=== PATIENT | female | born 1995 | race Caucasian/White ===

== ENCOUNTER 2017-08-19 12:16 | Emergency (ER) | payer BC ==
--- NOTE | 2017-08-19 12:24 | EDM.PDOC ---
ED HPI GENERAL MEDICAL PROBLEM - General Chief Complaint: Abdominal Pain Stated Complaint: ABD PAIN Time Seen by Provider: 08/19/17 12:22 Source of Information: Reports: Patient History Limitations: Reports: No Limitations - History of Present Illness INITIAL COMMENTS - FREE TEXT/NARRATIVE: HISTORY AND PHYSICAL: History of present illness: Patient is a 21-year-old female who presents to the emergency room with complaints of right lower quadrant pain 2 days. She states she has slight discomfort to her right low back and intermittent dysuria. Denies any fever, chills, chest pain or shortness of breath. She denies any nausea, vomiting, diarrhea or constipation. Last menstrual period 08/13/2017, normal. Review of systems: As per history of present illness and below otherwise all systems reviewed and negative. Past medical history: As per history of present illness and as reviewed below otherwise noncontributory. Surgical history: As per history of present illness and as reviewed below otherwise noncontributory. Social history: No reported history of drug or alcohol abuse. Family history: As per history of present illness and as reviewed below otherwise noncontributory. Physical exam: General: Well developed and well-nourished 21-year-old female. Alert and oriented. Nontoxic appearing and in no acute distress. HEENT: Atraumatic, normocephalic, pupils reactive, negative for conjunctival pallor or scleral icterus, mucous membranes moist, throat clear, neck supple, nontender, trachea midline. Lungs: Clear to auscultation, breath sounds equal bilaterally, chest nontender. Heart: S1S2, regular rate and rhythm Abdomen: Soft, nondistended, right lower quadrant pain/tenderness-no rebound tenderness. Negative for masses or hepatosplenomegaly. Negative for costovertebral tenderness. Pelvis: Stable nontender. Genitourinary: Deferred. Rectal: Deferred. Extremities: Atraumatic, moves all extremities per self without difficulty or deficits, negative for cords or calf pain. Neurovascular unremarkable. Neuro: Awake, alert, oriented. Cranial nerves II through XII unremarkable. Cerebellum unremarkable. Motor and sensory unremarkable throughout. Exam nonfocal. WBC 12.38; UA shows +Nitrate, +WBC, +Bacteria; CT indicates straining and striation of the right kidney suggestive of a pyelonephritis. We'll give the patient 1 g of Rocephin IV while here. Patient will be discharged with Shavonro, Pyridium, Zofran, and Tramadol. I educated her on signs and symptoms that would prompt her to come back to the emergency room. She is comfortable with discharge and she is currently pain-free with out any nausea. Vital signs are stable. Cultures and urine culture results are pending. Diagnostics: CBC, CMP, UA, urine , CT abdomen and pelvis, urine culture Therapeutics: IV fluid, Toradol Impression: UTI Plan: 1. Please take your antibiotic as directed. Zofran has been prescribed as needed for nausea management. Tramadol as needed as we discussed. Otherwise may use Tylenol or Ibuprofen as needed. Gentle heat may provide some comfort. 2. Increase your oral fluids. Blood and Urine cultures have been done (we will call you if we need to change your antibiotic). 3. If her symptoms worsen or new symptoms develop please return to the emergency room as we discussed. Follow up with her primary care provider in the next couple days. Return to the ED as needed as discussed. Definitive disposition and diagnosis as appropriate pending reevaluation and review of above. right lower abd Pain Score (Numeric/FACES): 8 - Related Data Allergies Allergy/AdvReac Type Severity Reaction Status Date / Time No Known Allergies Allergy Verified 08/19/17 12:24 Home Meds: Home Meds Ciprofloxacin HCl [Cipro] 500 mg PO BID 10 Days #20 tablet 08/19/17 [Rx] Ondansetron [Zofran ODT] 4 mg PO Q6H PRN #12 tab.dis 08/19/17 [Rx] Phenazopyridine HCl [Pyridium] 100 mg PO TID 2 Days #6 tablet 08/19/17 [Rx] ED ROS GENERAL - Review of Systems Review Of Systems: ROS reveals no pertinent complaints other than HPI. ED EXAM, GI/ABD - Physical Exam Exam: See Below (See dictation) Course - Vital Signs Last Recorded V/S: Last Vital Signs Temp 98.4 F 08/19/17 12:24 Pulse 73 08/19/17 13:50 Resp 16 08/19/17 13:50 BP 129/61 08/19/17 13:50 Pulse Ox 98 08/19/17 13:50 - Orders/Labs/Meds Orders: Active Orders 24 hr Category Date Time Status CULTURE BLOOD [BC] Stat Lab 08/19/17 14:40 Ordered CULTURE BLOOD [BC] Stat Lab 08/19/17 14:40 Ordered CULTURE URINE [RM] Stat Lab 08/19/17 12:30 Received cefTRIAXone [Rocephin in Dextrose,Iso-Osm 1 GM/50 ML] 1 Med 08/19/17 14:38 Ordered gm Premix Bag 1 bag IV ONETIME Blood Culture x2 Reflex Set [OM.PC] Stat Oth 08/19/17 14:39 Ordered Medication Orders Ceftriaxone Sodium/Dextrose 1 (gm/ Premix) 50 mls @ 100 mls/hr IV ONETIME ONE Stop: 08/19/17 15:07 Last Admin: 08/19/17 14:48 Dose: 100 mls/hr Labs: Laboratory Tests 08/19/17 08/19/17 08/19/17 Range/Units 12:30 12:30 12:38 WBC 12.38 H (4.0-11.0) K/uL RBC 5.17 (4.30-5.90) M/uL Hgb 14.1 (12.0-16.0) g/dL Hct 41.8 (36.0-46.0) % MCV 80.9 (80.0-98.0) fL MCH 27.3 (27.0-32.0) pg MCHC 33.7 (31.0-37.0) g/dL RDW Std Deviation 50.8 (28.0-62.0) fl RDW Coeff of Faiza 17 H (11.0-15.0) % Plt Count 393 (150-400) K/uL MPV 9.80 (7.40-12.00) fL Neut % (Auto) 69.5 (48.0-80.0) % Lymph % (Auto) 21.1 (16.0-40.0) % [place] % (Auto) 9.0 (0.0-15.0) % Eos % (Auto) 0.2 (0.0-7.0) % Baso % (Auto) 0.2 (0.0-1.5) % Neut # (Auto) 8.6 H (1.4-5.7) K/uL Lymph # (Auto) 2.6 H (0.6-2.4) K/uL [place] # (Auto) 1.1 H (0.0-0.8) K/uL Eos # (Auto) 0.0 (0.0-0.7) K/uL Baso # (Auto) 0.0 (0.0-0.1) K/uL Nucleated RBC % 0.0 /100WBC Nucleated RBCs # 0 K/uL Sodium (136-145) mmol/L Potassium (3.5-5.1) mmol/L Chloride (98-107) mmol/L Carbon Dioxide (21.0-32.0) mmol/L BUN (7.0-18.0) mg/dL Creatinine (0.6-1.0) mg/dL Est Cr Clr Drug Dosing mL/min Estimated GFR (MDRD) ml/min Glucose (74-106) mg/dL Calcium (8.5-10.1) mg/dL Total Bilirubin (0.2-1.0) mg/dL AST (15-37) IU/L ALT (14-63) IU/L Alkaline Phosphatase (46-116) U/L Total Protein (6.4-8.2) g/dL Albumin (3.4-5.0) g/dL Globulin (2.0-3.5) g/dL Albumin/Globulin Ratio (1.3-2.8) Urine Color YELLOW Urine Appearance CLOUDY Urine pH 6.0 (5.0-8.0) Ur Specific [place] 1.010 (1.001-1.035) Urine Protein 30 (NEGATIVE) mg/dL Urine Glucose (UA) NEGATIVE (NEGATIVE) mg/dL Urine Ketones 15 H (NEGATIVE) mg/dL Urine Occult Blood SMALL H (NEGATIVE) Urine Nitrite POSITIVE H (NEGATIVE) Urine Bilirubin NEGATIVE (NEGATIVE) Urine Urobilinogen 0.2 (<2.0) EU/dL Ur Leukocyte Esterase LARGE (NEGATIVE) Urine RBC 3-5 (0-2/HPF) Urine WBC TO NUMEROUS TO COUNT H (0-5/HPF) Ur Epithelial Cells MODERATE (NONE-FEW) Urine Bacteria 2+ H (NEGATIVE) Urine HCG, Qual NEGATIVE (NEGATIVE) 08/19/17 Range/Units 12:38 WBC (4.0-11.0) K/uL RBC (4.30-5.90) M/uL Hgb (12.0-16.0) g/dL Hct (36.0-46.0) % MCV (80.0-98.0) fL MCH (27.0-32.0) pg MCHC (31.0-37.0) g/dL RDW Std Deviation (28.0-62.0) fl RDW Coeff of Faiza (11.0-15.0) % Plt Count (150-400) K/uL MPV (7.40-12.00) fL Neut % (Auto) (48.0-80.0) % Lymph % (Auto) (16.0-40.0) % [place] % (Auto) (0.0-15.0) % Eos % (Auto) (0.0-7.0) % Baso % (Auto) (0.0-1.5) % Neut # (Auto) (1.4-5.7) K/uL Lymph # (Auto) (0.6-2.4) K/uL [place] # (Auto) (0.0-0.8) K/uL Eos # (Auto) (0.0-0.7) K/uL Baso # (Auto) (0.0-0.1) K/uL Nucleated RBC % /100WBC Nucleated RBCs # K/uL Sodium 138 (136-145) mmol/L Potassium 3.6 (3.5-5.1) mmol/L Chloride 100 (98-107) mmol/L Carbon Dioxide 25.2 (21.0-32.0) mmol/L BUN 11 (7.0-18.0) mg/dL Creatinine 0.8 (0.6-1.0) mg/dL Est Cr Clr Drug Dosing 92.79 mL/min Estimated GFR (MDRD) > 60.0 ml/min Glucose 81 (74-106) mg/dL Calcium 9.6 (8.5-10.1) mg/dL Total Bilirubin 0.9 (0.2-1.0) mg/dL AST 17 (15-37) IU/L ALT 20 (14-63) IU/L Alkaline Phosphatase 44 L (46-116) U/L Total Protein 8.9 H (6.4-8.2) g/dL Albumin 4.5 (3.4-5.0) g/dL Globulin 4.4 H (2.0-3.5) g/dL Albumin/Globulin Ratio 1.0 L (1.3-2.8) Urine Color Urine Appearance Urine pH (5.0-8.0) Ur Specific [place] (1.001-1.035) Urine Protein (NEGATIVE) mg/dL Urine Glucose (UA) (NEGATIVE) mg/dL Urine Ketones (NEGATIVE) mg/dL Urine Occult Blood (NEGATIVE) Urine Nitrite (NEGATIVE) Urine Bilirubin (NEGATIVE) Urine Urobilinogen (<2.0) EU/dL Ur Leukocyte Esterase (NEGATIVE) Urine RBC (0-2/HPF) Urine WBC (0-5/HPF) Ur Epithelial Cells (NONE-FEW) Urine Bacteria (NEGATIVE) Urine HCG, Qual (NEGATIVE) Meds: Medications Generic Name Dose Route Start Last Admin Trade Name Freq PRN Reason Stop Dose Admin Ceftriaxone Sodium/Dextrose 1 50 mls @ 100 mls/hr 08/19/17 14:38 08/19/17 14: 48 gm/ Premix IV 08/19/17 15:07 100 mls/hr ONETIME ONE Administration Discontinued Medications Generic Name Dose Route Start Last Admin Trade Name Freq PRN Reason Stop Dose Admin Lactated Ringer's 1,000 mls @ 999 mls/hr 08/19/17 12:30 Ringers, Lactated IV ASDIRECTED TRA Lactated Ringer's 1,000 mls @ 999 mls/hr 08/19/17 12:27 08/19/17 12:43 Ringers, Lactated IV 08/19/17 13:27 999 mls/hr NOW STA Administration Ceftriaxone Sodium/Dextrose Confirm 08/19/17 14:46 Rocephin In Dextrose,Iso-Osm 1 Gm/50 Ml Administered 08/19/17 14:47 Dose 50 mls @ as directed .ROUTE .STK-MED ONE Iopamidol 100 ml 08/19/17 14:07 08/19/17 14:08 Isovue Multipack-370 (76%) IVPUSH 08/19/17 14:08 100 ml ONETIME STA Administration Ketorolac Tromethamine 30 mg 08/19/17 12:30 08/19/17 12:58 Toradol IVPUSH 08/19/17 12:31 30 mg ONETIME ONE Administration Departure - Departure Time of Disposition: 14:46 Disposition: Home, Self-Care 01 Clinical Impression: Pyelonephritis - Discharge Information Prescriptions: Ciprofloxacin HCl [Cipro] 500 mg PO BID 10 Days #20 tablet Ondansetron [Zofran ODT] 4 mg PO Q6H PRN #12 tab.dis PRN Reason: Nausea Phenazopyridine HCl [Pyridium] 100 mg PO TID 2 Days #6 tablet Instructions: Pyelonephritis, Adult, [id number] Referrals: PCP,None [Primary Care Provider] - Forms: ED Department Discharge Additional Instructions: My general discharge The following information is given to patients seen in the emergency department who are being discharged to home. This information is to outline your options for follow-up care. We provide all patients seen in our emergency department with a follow-up referral. The need for follow-up, as well as the timing and circumstances, are variable depending upon the specifics of your emergency department visit. If you don't have a primary care physician on staff, we will provide you with a referral. We always advise you to contact your personal physician following an emergency department visit to inform them of the circumstance of the visit and for follow-up with them and/or the need for any referrals to a consulting specialist. The emergency department will also refer you to a specialist when appropriate. This referral assures that you have the opportunity for follow-up care with a specialist. All of these measure are taken in an effort to provide you with optimal care, which includes your follow-up. Under all circumstances we always encourage you to contact your private physician who remains a resource for coordinating your care. When calling for follow-up care, please make the office aware that this follow-up is from your recent emergency room visit. If for any reason you are refused follow-up, please contact the [facility] Emergency Department at and asked to speak to the emergency department charge nurse. [facility] [address] [place] [id number] 1. Please take your antibiotic as directed. Zofran has been prescribed as needed for nausea management. Tramadol as needed as we discussed. 2. Increase your oral fluids. Blood and Urine cultures have been done (we will call you if we need to change your antibiotic). 3. If her symptoms worsen or new symptoms develop please return to the emergency room as we discussed. Follow up with her primary care provider in the next couple days. Return to the ED as needed as discussed. - My Orders Last 24 Hours: My Active Orders 08/19/17 12:30 CULTURE URINE [RM] Stat 08/19/17 14:38 cefTRIAXone [Rocephin in Dextrose,Iso-Osm 1 GM/50 ML] 1 gm Premix Bag 1 bag IV ONETIME 08/19/17 14:39 Blood Culture x2 Reflex Set [OM.PC] Stat 08/19/17 14:40 CULTURE BLOOD [BC] Stat CULTURE BLOOD [BC] Stat - Assessment/Plan Last 24 Hours: My Active Orders 08/19/17 12:30 CULTURE URINE [RM] Stat 08/19/17 14:38 cefTRIAXone [Rocephin in Dextrose,Iso-Osm 1 GM/50 ML] 1 gm Premix Bag 1 bag IV ONETIME 08/19/17 14:39 Blood Culture x2 Reflex Set [OM.PC] Stat 08/19/17 14:40 CULTURE BLOOD [BC] Stat CULTURE BLOOD [BC] Stat
[2017-08-19] MEDS ORDERED: Lactated Ringers 1,000 ML IV STA (12:27)
[2017-08-19] MEDS ORDERED: Ketorolac 30 MG/ML SDV IVPUSH ONE (12:30)
[2017-08-19] MEDS ORDERED: Lactated Ringers 1,000 ML IV SCH (12:30)
[2017-08-19 13:42] LABS: CHLORIDE,CL 100 mmol/L (98-107); SODIUM,NA 138 mmol/L (136-145)
[2017-08-19] MEDS ORDERED: Iopamidol 755 MG/ML 500 ML Multipack Bottle IVPUSH STA (14:07)
--- NOTE | 2017-08-19 14:35 | CT ---
CT of the abdomen and pelvis with contrast. HISTORY: Pain TECHNIQUE: Axial CT images were obtained of the abdomen and pelvis following administration of 100 mL of Isovue-370 in the right antecubital fossa without complication. Coronal and sagittal reconstructi ons obtained. FINDINGS: The lung bases are clear, no pleural effusion. The liver, spleen, and pancreas appear grossly unremarkable. Motion artifact is noted within the uppe r abdomen. Mild nodular thickening of the left adrenal gland. No bulky retroperitoneal lymphadenopath y or abdominal ascites. There is possibly a mild striated appearance within the right kidney. Small cysts noted within the le ft kidney. Both ureters appear mildly thickened with a trace periureteral stranding. No calcification s noted along the courses of the ureters or within the kidneys bilaterally. Urinary bladder is normal . The large and small bowel are normal in caliber without evidence of obstruction. No focal pericolonic inflammation or stranding. The appendix is normal. No pelvic lymphadenopathy or free pelvic fluid. T he urinary bladder is normal. Uterus and ovaries are normal. Trace physiologic free fluid. No suspicious osseous abnormalities identified. IMPRESSION: 1. Periureteral stranding and striated appearance within the right kidney suggestive of an underlying UTI and right-sided pyelonephritis.
[2017-08-19] MEDS ORDERED: cefTRIAXone 1 GM in Premix Bag 1 BAG IV ONE (14:38)
== END 2017-08-19 15:32 | disposition home or self-care (01) ==
LOC: MW.ED 12:16
DX: N12 Tubulo-interstitial nephritis, not specified as acute or chronic (principal); Z79.899 Other long term (current) drug therapy
CPT/HCPCS: 36415; 74177; 80053; 81001; 81025; 85025; 87040; 87086; 87088; 87186; 96361; 96365; 96375; 99284; J0696; J1885; J7120; Q9967

== ENCOUNTER 2018-12-18 14:47 | Emergency (ER) | payer BC ==
[2018-12-18] MEDS ORDERED: Ketorolac 60 MG/2 ML SDV IM ONE (15:41)
[2018-12-18] MEDS ORDERED: Ondansetron 4 MG Tab.DIS PO ONE (15:41)
--- NOTE | 2018-12-18 15:44 | EDM.PDOC ---
ED HPI GENERAL MEDICAL PROBLEM - General Chief Complaint: Headache Stated Complaint: HEADACHE Time Seen by Provider: 12/18/18 15:27 Source of Information: Reports: Patient History Limitations: Reports: No Limitations - History of Present Illness INITIAL COMMENTS - FREE TEXT/NARRATIVE: History of present illness: []Patient's had 3 years of migraine headaches occurring approximately once a week was treated in [place] with Imitrex that worked for a short while. She states she usually takes Excedrin Migraine and that break the headache. She took Excedrin Migraine this morning and did not break. She was told by previous doctor that if this occurs she should come to the emergency room for a pain shot. She denies any fevers, trauma or sinus congestion. Review of systems: As per history of present illness and below otherwise all systems reviewed and negative. Past medical history: As per history of present illness and as reviewed below otherwise noncontributory. Surgical history: As per history of present illness and as reviewed below otherwise noncontributory. Social history: No reported history of drug or alcohol abuse. Family history: As per history of present illness and as reviewed below otherwise noncontributory. Physical exam: General: Well developed, well nourished in NAD HEENT: Atraumatic, normocephalic, pupils reactive, negative for conjunctival pallor or scleral icterus, mucous membranes moist, throat clear, neck supple, no rigidity, nontender, trachea midline. No sinus tenderness to palpation Lungs: Clear to auscultation, breath sounds equal bilaterally, chest nontender. Heart: S1S2, regular, negative for clicks, rubs, or JVD. Abdomen: NABS, Soft, nondistended, nontender. Negative for masses or hepatosplenomegaly. Negative for costovertebral tenderness. Pelvis: Stable nontender. Genitourinary: Deferred. Rectal: Deferred. Extremities: Atraumatic, negative for cords or calf pain. Neurovascular unremarkable. Neuro: Awake, alert, oriented. Cranial nerves II through XII unremarkable. Cerebellum unremarkable. Motor and sensory unremarkable throughout. Exam nonfocal. Skin:warm and dry Diagnostics: None Therapeutics: Toradol IM, Zofran ED Course: Stable Impression: Cephalgia Prescriptions: None Plan: Take meds as directed, follow up with your primary care physician, return to ER if symptoms worsen or change. Definitive disposition and diagnosis as appropriate pending reevaluation and review of above. Headache Pain Score (Numeric/FACES): 6 - Related Data Allergies Allergy/AdvReac Type Severity Reaction Status Date / Time No Known Allergies Allergy Verified 08/19/17 12:24 Home Meds: Home Meds Ciprofloxacin HCl [Cipro] 500 mg PO BID 10 Days #20 tablet 08/19/17 [Rx] Ondansetron [Zofran ODT] 4 mg PO Q6H PRN #12 tab.dis 08/19/17 [Rx] Phenazopyridine HCl [Pyridium] 100 mg PO TID 2 Days #6 tablet 08/19/17 [Rx] Past Medical History Psychiatric History: Reports: Anxiety, Depression - Infectious Disease History Infectious Disease History: Reports: Chicken Pox - Past Surgical History HEENT Surgical History: Reports: Other (See Below) Other HEENT Surgeries/Procedures: jaw surgery Social & Family History - Family History Family Medical History: Noncontributory - Caffeine Use Caffeine Use: Reports: Coffee, Energy Drinks, Soda ED ROS GENERAL - Review of Systems Review Of Systems: See Below - Physical Exam Exam: See Below Course - Vital Signs Last Recorded V/S: Last Vital Signs Temp 96.8 F 12/18/18 15:46 Pulse 91 12/18/18 15:46 Resp 16 12/18/18 15:46 BP 124/74 12/18/18 15:46 Pulse Ox 98 12/18/18 15:46 - Orders/Labs/Meds Meds: Medications Discontinued Medications Generic Name Dose Route Start Last Admin Trade Name Freq PRN Reason Stop Dose Admin Ketorolac Tromethamine 60 mg 12/18/18 15:41 12/18/18 15:57 Toradol IM 12/18/18 15:42 60 mg ONETIME ONE Administration Ondansetron HCl 4 mg 12/18/18 15:41 12/18/18 15:57 Zofran Odt PO 12/18/18 15:42 Not Given ONETIME ONE Departure - Departure Time of Disposition: 16:04 Disposition: Home, Self-Care 01 Condition: Good Clinical Impression: Cephalgia Qualifiers: Headache type: unspecified - Discharge Information *PRESCRIPTION DRUG MONITORING PROGRAM REVIEWED*: No *COPY OF PRESCRIPTION DRUG MONITORING REPORT IN PATIENT RED: No Referrals: PCP,Unknown [Primary Care Provider] - Forms: ED Department Discharge Additional Instructions: The following information is given to patients seen in the emergency department who are being discharged to home. This information is to outline your options for follow-up care. We provide all patients seen in our emergency department with a follow-up referral. The need for follow-up, as well as the timing and circumstances, are variable depending upon the specifics of your emergency department visit. If you don't have a primary care physician on staff, we will provide you with a referral. We always advise you to contact your personal physician following an emergency department visit to inform them of the circumstance of the visit and for follow-up with them and/or the need for any referrals to a consulting specialist. The emergency department will also refer you to a specialist when appropriate. This referral assures that you have the opportunity for follow-up care with a specialist. All of these measure are taken in an effort to provide you with optimal care, which includes your follow-up. Under all circumstances we always encourage you to contact your private physician who remains a resource for coordinating your care. When calling for follow-up care, please make the office aware that this follow-up is from your recent emergency room visit. If for any reason you are refused follow-up, please contact the [facility] Emergency Department at and asked to speak to the emergency department charge nurse. [facility] [address] [place] [id number]
== END 2018-12-18 16:22 | disposition home or self-care (01) ==
LOC: MW.ED 14:47
DX: R51 Headache (principal)
CPT/HCPCS: 96372; 99283; J1885

== ENCOUNTER 2020-12-17 10:04 | Day surgery (SDC) | payer BC ==
[~2020-12-17 10:04] MED LIST: Lactated Ringers 1,000 ML IV SCH; Lidocaine 2% 5 ML SDV ONE; Midazolam 1 MG/ML 2 ML SDV ONE; Ondansetron 4 MG/2 ML SDV ONE; Sodium Chloride 0.9% 10 ML SDV IV PRN; Sodium Chloride 0.9% 10 ML Syringe FLUSH PRN; Sodium Chloride 0.9% 2.5 ML Syringe FLUSH PRN; propofoL 50 ML ONE
--- NOTE | 2020-12-17 11:01 | PCM.PREANE ---
Preanesthetic Assessment - Anesthesia/Transfusion/Family Hx Anesthesia History: Prior Anesthesia Without Reaction Transfusion History: No Prior Transfusion(s) - Review of Systems General: No Symptoms Pulmonary: No Symptoms Cardiovascular: No Symptoms Gastrointestinal: No Symptoms Neurological: No Symptoms Other: Reports: None - Physical Assessment NPO Status Date: 12/17/20 NPO Status Time: 00:00 Vital Signs: Last Vital Signs Temp 97.0 F 12/17/20 10:26 Pulse 85 12/17/20 10:26 Resp 16 12/17/20 10:26 BP 138/87 12/17/20 10:26 Pulse Ox 96 12/17/20 10:26 Height: 5 ft 4 in Weight: 234 lb ASA Class: 2 Mental Status: Alert & Oriented x3 Airway Class: Mallampati = 3 Dentition: Reports: Normal Dentition ROM/Head Extension: Full Lungs: Clear to Auscultation, Normal Respiratory Effort Cardiovascular: Regular Rate, Regular Rhythm - Lab Values: Laboratory Last Values Urine HCG, Qual NEGATIVE (NEGATIVE) 12/17/20 10:15 - Allergies Allergies/Adverse Reactions: Allergies Allergy/AdvReac Type Severity Reaction Status Date / Time adhesive tape Allergy Rash Verified 12/11/20 13:45 chocolate flavor Allergy Abdominal Verified 12/11/20 13:45 Pain [place] And Derivatives Allergy Airway Verified 12/11/20 13:45 Tightness - Blood Blood Available: No - Anesthesia Plan Pre-Op Medication Ordered: None - Acknowledgements Anesthesia Type Planned: General Anesthesia Pt an Appropriate Candidate for the Planned Anesthesia: Yes Alternatives and Risks of Anesthesia Discussed w Pt/Guardian: Yes Pt/Guardian Understands and Agrees with Anesthesia Plan: Yes PreAnesthesia Questionnaire HEENT History: Reports: Other (See Below) Other HEENT History: wears glasses Cardiovascular History: Reports: Heart Murmur Other Cardiovascular History: was told she had a heart murmur when she had her jaw repaired- had it checked then (was told it "was fine") but not since Respiratory History: Reports: None Gastrointestinal History: Reports: Hemorrhoids Genitourinary History: Reports: None [employer] History: Reports: None Musculoskeletal History: Reports: Fracture, Neck Pain, Chronic Other Musculoskeletal History: hx of fx nose, neck and jaw (kicked by a horse) Neurological History: Reports: Concussion, Head Trauma, Migraines Psychiatric History: Reports: Anxiety, Depression, Other (See Below) Other Psychiatric History: claustrophobic Endocrine/Metabolic History: Reports: Obesity/BMI 30+ Hematologic History: Reports: None Immunologic History: Reports: None Oncologic (Cancer) History: Reports: None Dermatologic History: Reports: None - Infectious Disease History Infectious Disease History: Reports: Chicken Pox - Past Surgical History Head Surgeries/Procedures: Reports: None HEENT Surgical History: Reports: Oral Surgery Other HEENT Surgeries/Procedures: wisdom teeth removed, repair of fx jaw Cardiovascular Surgical History: Reports: None Respiratory Surgical History: Reports: None GI Surgical History: Reports: None Female Surgical History: Reports: None Endocrine Surgical History: Reports: None Neurological Surgical History: Reports: None Musculoskeletal Surgical History: Reports: None Oncologic Surgical History: Reports: None Dermatological Surgical History: Reports: None - SUBSTANCE USE Tobacco Use Status *Q: Never Tobacco User Recreational Drug Use History: No - HOME MEDS Home Medications: Home Meds Venlafaxine HCl 37.5 mg PO DAILY 12/11/20 [History] levonorgestreL [Mirena] 1 each IUTERINE ONETIME 12/11/20 [History] - CURRENT (IN HOUSE) MEDS Current Meds: Current Medications Lactated Ringer's (Ringers, Lactated) 1,000 mls @ 125 mls/hr IV ASDIRECTED TRA Last Admin: 12/17/20 10:32 Dose: 125 mls/hr Documented by: Sodium Chloride (Sodium Chloride 0.9% 10 Ml Syringe) 10 ml FLUSH ASDIRECTED PRN PRN Reason: Keep Vein Open Sodium Chloride (Sodium Chloride 0.9% 2.5 Ml Syringe) 2.5 ml FLUSH ASDIRECTED PRN PRN Reason: Keep Vein Open Sodium Chloride (Sodium Chloride 0.9% 10 Ml Syringe) 10 ml FLUSH ASDIRECTED PRN PRN Reason: Keep Vein Open Sodium Chloride (Sodium Chloride 0.9% 2.5 Ml Syringe) 2.5 ml FLUSH ASDIRECTED PRN PRN Reason: Keep Vein Open Sodium Chloride (Sodium Chloride 0.9% 10 Ml Sdv) 10 ml IV ASDIRECTED PRN PRN Reason: IV Use Discontinued Medications Propofol (Diprivan 50 Ml) Confirm Administered Dose 50 mls @ as directed .ROUTE .STK-MED ONE Stop: 12/17/20 06:57 Lidocaine (Lidocaine 2% 5 Ml Sdv) Confirm Administered Dose 5 ml .ROUTE .STK-MED ONE Stop: 12/17/20 06:53 Midazolam HCl (Midazolam 1 Mg/Ml 2 Ml Sdv) Confirm Administered Dose 2 mg .ROUTE .STK-MED ONE Stop: 12/17/20 08:00 Ondansetron HCl (Ondansetron 4 Mg/2 Ml Sdv) Confirm Administered Dose 4 mg .ROUTE .STEmergenSee-MED ONE Stop: 12/17/20 06:53
[2020-12-17] MEDS ORDERED: Propofol 200 MG/20 ML SDV ONE (11:19)
[2020-12-17] MEDS ORDERED: fentaNYL 100 MCG/2 ML SDV ONE (11:19)
--- NOTE | 2020-12-17 11:32 | PCM.OPNOTE ---
- General Post-Op/Procedure Note Date of Surgery/Procedure: 12/17/20 Operative Procedure(s): Screening colonosocpy Findings: normal colonoscopy Pre Op Diagnosis: Screening colonoscopy, family history of colon polyps Post-Op Diagnosis: Normal colonoscopy Anesthesia Technique: [facility] [place] Primary Surgeon: Rosi Mathews Condition: Good
--- NOTE | 2020-12-17 11:37 | PCM48HPAN ---
Post Anesthesia Note - EVALUATION WITHIN 48HRS OF ANESTHETIC Vital Signs in Normal Range: Yes Patient Participated in Evaluation: Yes Respiratory Function Stable: Yes Airway Patent: Yes Cardiovascular Function Stable: Yes Hydration Status Stable: Yes Pain Control Satisfactory: Yes Nausea and Vomiting Control Satisfactory: Yes Mental Status Recovered: Yes Vital Signs: Last Vital Signs Temp 98.8 F 12/17/20 11:29 Pulse 85 12/17/20 10:26 Resp 13 12/17/20 11:29 BP 116/74 12/17/20 11:29 Pulse Ox 95 12/17/20 11:29
--- NOTE | 2020-12-17 11:37 | PCM.POSTAN ---
POST ANESTHESIA ASSESSMENT - MENTAL STATUS Mental Status: Alert, Oriented - VITAL SIGNS Vital Signs: Last Vital Signs Temp 98.8 F 12/17/20 11:29 Pulse 85 12/17/20 10:26 Resp 13 12/17/20 11:29 BP 116/74 12/17/20 11:29 Pulse Ox 95 12/17/20 11:29 - RESPIRATORY Respiratory Status: Respiratory Rate WNL, Airway Patent, O2 Saturation Stable - CARDIOVASCULAR CV Status: Pulse Rate WNL, Blood Pressure Stable - GASTROINTESTINAL GI Status: No Symptoms - POST OP HYDRATION Hydration Status: Adequate & Stable
--- NOTE | 2020-12-18 21:00 | OR ---
SURGEON: ROSI MATHEWS MD DATE OF PROCEDURE: 12/17/2020 PREOPERATIVE DIAGNOSIS: Family history of colon polyps and colon cancer. POSTOPERATIVE DIAGNOSIS: Family history of colon polyps and colon cancer. PROCEDURE PERFORMED: Diagnostic colonoscopy. PRIMARY SURGEON: Rosi Mathews MD ANESTHESIA: MAC. INSTRUMENT USED: Olympus colonoscope. EXTENT OF EXAM: To the cecum. PREPARATION: Good. LIMITATIONS: None. INDICATIONS FOR EXAMINATION: The patient is a 25-year-old female who presented to clinic with a family history of colon cancer. Her brother, who is younger than her, recently had a diagnostic colonoscopy and was found to have three cancerous polyps. We discussed the need for her to undergo a diagnostic exam then as well. I explained the procedure, expected perioperative course, and the risks. She verbalized understanding and wishes to proceed. PROCEDURE IN DETAIL: The patient was brought in to the endoscopy suite and placed in the left lateral decubitus position. A time-out was completed verifying the patient's name, age, date of , allergies, and procedure to be performed. Monitored anesthesia care was induced and continuous oxygen was provided via nasal cannula throughout the procedure. After adequate sedation was achieved, a digital rectal exam was performed. This exam was within normal limits. A well-lubricated colonoscope was inserted in the rectum and advanced under direct visualization to the level of the cecum. The cecum was identified by both visual and anatomic landmarks. A photograph was taken of the cecal cap, however I was unable to retroflex the scope within the cecum due to looping of the scope more proximally. The scope was then fully withdrawn while examining the color, texture, anatomy, and integrity of the mucosa from the cecum to the anal canal. The patient was found to have normal-appearing colonic mucosa. The scope was then brought into the rectum and retroflexed to allow visualization of the anal canal opening. This appeared normal and a photograph was taken. The scope was then straightened out and fully withdrawn. The cecum to anus time was 9 minutes. The patient tolerated the procedure well and was transferred to the PACU in stable condition. ENDOSCOPIC DIAGNOSIS: Normal colonoscopy. RECOMMENDATION: Follow up in clinic in five years. OSCAR / GERARDO /[id number]
== END 2020-12-17 11:57 | disposition home or self-care (01) ==
LOC: MW.SDS 10:04
PROVIDERS: ATTEND Surgery
DX: Z12.11 Encounter for screening for malignant neoplasm of colon (principal); K64.9 Unspecified hemorrhoids; Z91.018 Allergy to other foods; E66.9 Obesity, unspecified; Z80.0 Family history of malignant neoplasm of digestive organs; Z83.71 Family history of colonic polyps; Z79.899 Other long term (current) drug therapy; Z91.02 Food additives allergy status
CPT/HCPCS: 45378; 81025; J2250; J2405; J2704; J3010; J7120; 00812

== ENCOUNTER 2022-05-27 19:32 | Inpatient (IN) | payer BC ==
[2022-05-27] MEDS ORDERED: Sodium Chloride 0.9% 2.5 ML Syringe FLUSH PRN (20:58)
[2022-05-27] MEDS ORDERED: Ondansetron 4 MG/2 ML SDV IVPUSH PRN (20:58)
[2022-05-27] MEDS ORDERED: Methylergonovine 0.2 MG/1 ML Amp IM PRN (20:58)
[2022-05-27] MEDS ORDERED: Water For Irrigation,Sterile 1,000 ML Container IRR PRN (20:58)
[2022-05-27] MEDS ORDERED: Sodium Chloride 0.9% 20 ML SDV IV PRN (20:58)
[2022-05-27] MEDS ORDERED: Lidocaine 1% 50 ML MDV INJECT PRN (20:58)
[2022-05-27] MEDS ORDERED: Carboprost Tromethamine 250 MCG/1 ML Amp IM PRN (20:58)
[2022-05-27] MEDS ORDERED: Butorphanol 1 MG/ML SDV IVPUSH PRN (20:58)
[2022-05-27] MEDS ORDERED: Terbutaline 1 MG/ML SDV SUBCUT PRN (20:58)
[2022-05-27] MEDS ORDERED: Misoprostol 200 MCG Tab PO PRN (20:58)
[2022-05-27] MEDS ORDERED: Tranexamic Acid 1,000 MG in Sodium Chloride 0.9% 100 ML IV PRN (20:58)
[2022-05-27] MEDS ORDERED: Sodium Chloride 0.9% 10 ML Syringe FLUSH PRN (20:58)
[2022-05-27] MEDS ORDERED: Oxytocin/0.9 % Sodium Chloride 30 UNIT/500 ML BAG IV SCH ×2 (21:00)
[2022-05-27] MEDS: Misoprostol 25 MCG (1/4 of 100 MCG) Tab VAG PRN (22:16)
[2022-05-27] MEDS: Lactated Ringers 1,000 ML IV SCH (22:16)
[2022-05-27 22:17] LABS: CARBON DIOXIDE,CO2 22.6 mmol/L (21.0-32.0)
[2022-05-28] MEDS: Lactated Ringers 1,000 ML IV SCH (01:29)
[2022-05-28] MEDS: Misoprostol 25 MCG (1/4 of 100 MCG) Tab VAG PRN (02:28)
[2022-05-28] MEDS ORDERED: ePHEDrine 50 MG/ML SDV IVPUSH PRN ×2 (09:09)
[2022-05-28] MEDS ORDERED: Phenylephrine HCl In 0.9% NaCl 1 MG/10 ML Vial IVPUSH PRN (09:09)
[2022-05-28] MEDS ORDERED: Ropivacaine HCl/PF 400 MG in Premix Bag 1 BAG EPIDUR SCH (09:15)
[2022-05-28] MEDS ORDERED: Phenylephrine HCl In 0.9% NaCl 1 MG/10 ML Vial IVPUSH SCH (09:15)
[2022-05-28] MEDS ORDERED: Bisacodyl 10 MG Supp RECTAL PRN (13:16)
[2022-05-28] MEDS ORDERED: Benzocaine/Menthol 20%-0.5% Spray 78 GM Cannister TOP PRN (13:16)
[2022-05-28] MEDS ORDERED: Acetaminophen 500 MG Tab PO PRN (13:16)
[2022-05-28] MEDS ORDERED: Ibuprofen 400 MG Tab PO PRN (13:16)
[2022-05-28] MEDS ORDERED: Docusate Sodium 100 MG Cap PO PRN (13:16)
[2022-05-28] MEDS ORDERED: Lanolin 100% Cream 7 GM Tube TOP PRN (13:16)
[2022-05-28] MEDS ORDERED: oxyCODONE 5 MG Tab PO PRN (13:16)
[2022-05-28] MEDS: Witch Hazel Medicated Pads 40/Jar TOP PRN (16:15)
[2022-05-28] MEDS: Ibuprofen 800 MG Tab PO PRN (16:16)
[2022-05-28] MEDS: Acetaminophen 500 MG Tab PO PRN (16:17)
[2022-05-29] MEDS: Ibuprofen 800 MG Tab PO PRN (04:19)
[2022-05-29] MEDS: Acetaminophen 500 MG Tab PO PRN (04:22)
[2022-05-29] MEDS: Witch Hazel Medicated Pads 40/Jar TOP PRN (09:39)
== END 2022-05-29 15:13 | disposition home or self-care (01) | DRG 560 ==
LOC: MW.OBCHECK 19:32 → MW.OB 19:33 → MW.OBCHECK 20:58 → MW.OB 20:59 → OBSVTOIN 05-28 12:56 → MW.OB 05-28 20:02
PROVIDERS: ADMIT Obstetrics & Gynecology; ATTEND Obstetrics & Gynecology
PROC: 10E0XZZ Delivery of Products of Conception, External Approach (ICD-10-PCS; principal; 2022-05-28)
PROC: 0HQ9XZZ Repair Perineum Skin, External Approach (ICD-10-PCS; 2022-05-28)
PROC: 3E0R3BZ Introduction of Anesthetic Agent into Spinal Canal, Percutaneous Approach (ICD-10-PCS; 2022-05-28)
PROC: 00HU33Z Insertion of Infusion Device into Spinal Canal, Percutaneous Approach (ICD-10-PCS; 2022-05-28)
DX: O42.013 Preterm premature rupture of membranes, onset of labor within 24 hours of rupture, third trimester (principal); O99.214 Obesity complicating childbirth; Z3A.38 38 weeks gestation of pregnancy; Z37.0 Single live birth; O69.81X0 Labor and delivery complicated by cord around neck, without compression, not applicable or unspecified; O70.0 First degree perineal laceration during delivery; Z20.822 Contact with and (suspected) exposure to COVID-19; D64.9 Anemia, unspecified; O90.81 Anemia of the puerperium
CPT/HCPCS: 36415; 51702; 59025; 59409; 80053; 81003; 82803; 84112; 85014; 85018; 85027; 86592; 86850; 86900; 86901; A9270-GY; J0595; J7120; U0002